=== PATIENT | female | born 1950 | race Caucasian/White ===

== ENCOUNTER 2019-10-15 12:26 | Inpatient (IN) | payer BC ==
[~2019-10-15] VITALS: Ht 160 cm; Wt 61.2 kg
--- NOTE | 2019-10-15 12:40 | NUR ---
hiro, from [facility], sent by PMD due to abnormal CXR PNA and for further evaluation, pt awake, alert, -sob, pt on monitor, pending md victoria
[2019-10-15] MEDS ORDERED: LEVOFLOXACIN 750 MG /D5W 150ML 150 ML IV ONE (13:00)
[2019-10-15] MEDS ORDERED: CEFEPIME 1 GM in IV D5W 50 ML IV ONE (13:00)
[2019-10-15] MEDS ORDERED: VANCOMYCIN 1 GM in IV D5W 250 ML IV ONE (13:00)
[2019-10-15 13:06] LABS: BASOPHILS # (AUTO) 0.1 /CMM (0.0-0.2); BASOPHILS % (AUTO) 0.7 % (0.0-2.0); EOSINOPHILS % (AUTO) 1.7 % (0.0-6.0); HEMATOCRIT 47 % (33-45); HEMOGLOBIN 15.2 g/dL (11.5-14.8); LYMPHOCYTES # (AUTO) 2.3 /CMM (0.8-4.8); LYMPHOCYTES % (AUTO) 16.9 % (20.0-44.0); MEAN CORPUSCULAR HGB CONC 32 g/dl (31.0-36.0); MEAN CORPUSCULAR VOLUME 91 fL (82-100); MONOCYTES # (AUTO) 1.2 /CMM (0.1-1.30); MONOCYTES % (AUTO) 8.6 % (2.0-12.0); NEUTROPHILS # (AUTO) 9.7 /CMM (1.8-8.9); NEUTROPHILS % (AUTO) 72.1 % (43.0-81.0); PLATELET COUNT (AUTO) 301 /CMM (150-450); RED BLOOD CELL COUNT(AUTO) 5.21 MIL/uL (4.0-5.2); WHITE BLOOD COUNT (AUTO) 13.5 K/uL (4.3-11.0)
[2019-10-15 13:13] LABS: CALCIUM, SERUM 9.3 mg/dL (8.5-10.1); CARBON DIOXIDE 37 mmol/L (21-32); CHLORIDE 103 mmol/L (98-107); CREATININE 0.5 mg/dL (0.6-1.3); GLUCOSE 100 mg/dL (74-106); POTASSIUM 4.4 mmol/L (3.5-5.1); SODIUM SERUM 143 mmol/L (136-145); UREA NITROGEN, BLOOD 8 mg/dL (7-18)
[2019-10-15] MEDS ORDERED: VANCOMYCIN 1 GM VIAL ONE (13:21)
--- NOTE | 2019-10-15 13:25 | NUR ---
MOVE SHEET SUBMITTED. CALLED FOR MS BED.
[2019-10-15] MEDS ORDERED: MEGE400O4 PO (13:32)
[2019-10-15] MEDS ORDERED: MIRT15TA PO (13:32)
[2019-10-15] MEDS ORDERED: TRAZ-257 PO (13:32)
[2019-10-15] MEDS ORDERED: CRAN450C PO (13:32)
[2019-10-15] MEDS ORDERED: LEVE750T4 PO (13:32)
[2019-10-15] MEDS ORDERED: ASCO500C16 PO (13:32)
[2019-10-15] MEDS ORDERED: CALC1TAB91 PO (13:32)
[2019-10-15] MEDS ORDERED: THIA100T70 PO (13:32)
[2019-10-15] MEDS ORDERED: BUSP5TAB3 PO (13:32)
[2019-10-15] MEDS ORDERED: ZINC1CAP3 PO (13:32)
[2019-10-15] MEDS ORDERED: ONDA4TAB11 PO (13:32)
[2019-10-15] MEDS ORDERED: FOLIC ACID PO (13:32)
[2019-10-15] MEDS ORDERED: OMEP40CA13 PO (13:32)
[2019-10-15] MEDS ORDERED: MULT1TAB82 PO (13:32)
--- NOTE | 2019-10-15 13:32 | NUR ---
pharmacy delivered vanco and levaquin iv, [facility]; returned vanco to pharmacy, jennifer mayer.
--- NOTE | 2019-10-15 14:02 | NUR ---
per dr. paul--respiratory cx order was part of order set, disregard order.
--- NOTE | 2019-10-15 14:26 | NUR ---
called for report, nurse with a patient will call back
--- NOTE | 2019-10-15 14:33 | NUR ---
REPORT GIVEN TO LYNNE ARGUELLO.
--- NOTE | 2019-10-15 14:49 | NUR ---
bedside report given to lawrence martinez for nichol; pt was transported to 3rd floor
--- NOTE | 2019-10-15 14:50 | NUR ---
RN MS NOTES RECEIVED PT VIA BED FROM [facility] STAFF FADY ARGUELLO, PT IS AWAKE, ALERT AND ORIENTED, DENIES PAIN, NOT IN DISTRESS, ASSISTED TO BED, MADE COMFORTABLE, ROOM SET UP ORIENTATION PROVIDED, VERBALIZED UNDERSTANDING, PT IS ALERT AND COOPERATIVE BUT WITH EPISODES OF ANXIETY, VITALS TAKEN, PT STATES THAT SHE DOES NOT HAVE ANY SKIN ISSUES, REFUSES SKIN CHECK AT THIS TIME, KEPT WARM AND COMFORTABLE, AWAITING ADMITTING ORDERS FROM DR. GARCIA.
[2019-10-15] MEDS ORDERED: LORAZEPAM 0.5 MG TABLET PO PRN (17:00)
[2019-10-15] MEDS ORDERED: MAGNESIUM HYDROXIDE 30 ML UDC PO PRN (17:00)
[2019-10-15] MEDS ORDERED: ACETAMINOPHEN 325 MG TABLET PO PRN (17:00)
[2019-10-15] MEDS ORDERED: ONDANSETRON HCL/PF 4 MG/2 ML VIAL IVP PRN (17:00)
[2019-10-15] MEDS ORDERED: Z GUARD REMEDY 2 OZ OINT TP PRN (17:00)
[2019-10-15] MEDS ORDERED: HYDROCODONE/APAP 5/325MG 1 EACH TABLET PO PRN (17:00)
[2019-10-15] MEDS: busPIRone 5 MG TABLET PO SCH (17:14)
--- NOTE | 2019-10-15 19:00 | NUR ---
RN MS NOTES PT AWAKE, ALERT AND ORIENTED, DENIES PAIN, NOT IN DISTRESS, SITTING IN THE WHEELCHAIR, WANTS TO GO TO MEET HER DAUGHTER AT THE LOBBY, EXPLAINED HOSPITAL RULES BUT STILL INSISTS, DR. GARCIA AWARE, ORDERS GIVEN, 1:1 SITTER ORDERED FOR SAFETY, PT COMPLIANT WITH MEDS, REFUSED BODY CHECK ON ADMISSION, STATED THAT SHE DOES NOT HAVE ANY SKIN PROBLEM, MONITORED PT CLOSELY, NEEDS ATTENDED.
--- NOTE | 2019-10-15 19:15 | NUR ---
MS RN NOTES: RECEIVED PATIENT Patient sitting up in wheelchair to move around, appears restless. Anxious to go hospital lobby, per patient she will meet her daughter at the lobby, reorient patient, will provided sitter. Fall precaution maintained.
[2019-10-15 20:00] VITALS: BP 139/78
[2019-10-15] MEDS: TRAZODONE 50 MG TABLET PO PRN (22:02)
[2019-10-15] MEDS: MIRTAZAPINE 15 MG TABLET PO SCH (22:02)
[2019-10-15] MEDS: LEVETIRACETAM (250 MG) 250 MG TABLET PO SCH (22:02)
--- NOTE | 2019-10-16 06:19 | NUR ---
MS RN NOTES: SHIFT REPORT Patient in bed, stable Oxygen saturation on room air. IV antibiotic as scheduled. Episode of Anxiety, denies pain, able to calm down after Ativan dose. Slept well with PRN Trazodone. Fall precaution maintained. Sitter at bedside.
[2019-10-16 07:05] LABS: BASOPHILS # (AUTO) 0.1 /CMM (0.0-0.2); BASOPHILS % (AUTO) 1.1 % (0.0-2.0); EOSINOPHILS % (AUTO) 3.7 % (0.0-6.0); HEMATOCRIT 44 % (33-45); HEMOGLOBIN 14.2 g/dL (11.5-14.8); LYMPHOCYTES # (AUTO) 1.9 /CMM (0.8-4.8); MEAN CORPUSCULAR HGB CONC 33 g/dl (31.0-36.0); MEAN CORPUSCULAR VOLUME 89 fL (82-100); MONOCYTES # (AUTO) 1.1 /CMM (0.1-1.30); MONOCYTES % (AUTO) 11.4 % (2.0-12.0); NEUTROPHILS # (AUTO) 6.2 /CMM (1.8-8.9); NEUTROPHILS % (AUTO) 63.8 % (43.0-81.0); PLATELET COUNT (AUTO) 276 /CMM (150-450); RED BLOOD CELL COUNT(AUTO) 4.88 MIL/uL (4.0-5.2); WHITE BLOOD COUNT (AUTO) 9.7 K/uL (4.3-11.0)
--- NOTE | 2019-10-16 07:30 | NUR ---
RN MS NOTES PT ASLEEP, RESPIRATION NORMAL AND NON LABORED, NO SIGN OF PAIN OR DISTRESS, KEPT STUDY ASSISTANT BED, SITTER AT BEDSIDE, SAFETY PRECAUTIONS OBSERVED.
[2019-10-16 07:58] LABS: CHOLESTEROL 173 mg/dL (<200); HDL CHOLESTEROL 55 mg/dL (40-60); LDL 111 mg/dL (0-99); THYROID STIMULATING HORMONE 1.404 uIU/mL (0.358-3.74); TRIGLYCERIDES 68 mg/dL (30-150)
[2019-10-16 08:23] LABS: CALCIUM, SERUM 8.4 mg/dL (8.5-10.1); CHLORIDE 105 mmol/L (98-107); CREATININE 0.5 mg/dL (0.6-1.3); GLUCOSE 84 mg/dL (74-106); MAGNESIUM 1.6 mg/dL (1.8-2.4); PHOSPHORUS 4.1 mg/dL (2.5-4.9); POTASSIUM 3.7 mmol/L (3.5-5.1); SODIUM SERUM 142 mmol/L (136-145)
[2019-10-16 08:31] LABS: CARBON DIOXIDE 29 mmol/L (21-32); UREA NITROGEN, BLOOD 6 mg/dL (7-18)
[2019-10-16] MEDS: busPIRone 5 MG TABLET PO SCH ×3 (09:00→16:42)
--- NOTE | 2019-10-16 09:00 | NUR ---
RN MS NOTES PT ASLEEP, EASY TO AROUSE, NO COMPLAINT OF PAIN, NOT IN DISTRESS, DOES NOT WANT TO EAT BREAKFAST OR TAKE HIS MEDS AT THIS TIME, WENT BACK TO SLEEP.
[2019-10-16] MEDS: CEFTRIAXONE 1 G in IV D5W 50 ML IV SCH (09:34)
[2019-10-16] MEDS: PANTOPRAZOLE 40 MG TABLET.DR PO SCH (13:38)
[2019-10-16] MEDS: LEVETIRACETAM (250 MG) 250 MG TABLET PO SCH ×2 (13:38→21:33)
[2019-10-16] MEDS: AZITHROMYCIN 250 MG TABLET PO SCH (13:38)
[2019-10-16] MEDS: CALCIUM CARB 250MG /VITAMIN D 1 UDTAB PO SCH (13:40)
[2019-10-16] MEDS: MEGESTROL ACETATE SUSP 400 MG/10 ML UDC PO SCH (13:40)
[2019-10-16] MEDS: FOLIC ACID 1 MG TABLET PO SCH (13:40)
[2019-10-16] MEDS: ZINC SULFATE 220 MG CAPSULE PO SCH (13:40)
[2019-10-16] MEDS: MULTIVITAMINS,THERAGRAN 1 UDTAB TABLET PO SCH (13:41)
[2019-10-16] MEDS: ASCORBIC ACID 500 MG TABLET PO SCH (13:41)
[2019-10-16] MEDS: THIAMINE HCL 100 MG TABLET PO SCH (13:41)
[2019-10-16] MEDS: Magnesium 1GM/D5W 100ML PREMIX 100 ML IV SCH ×2 (14:55→16:37)
--- NOTE | 2019-10-16 15:00 | NUR ---
RN MS NOTES PT IN BED, RESTING, NO BEHAVIOR PROBLEM NOTED AT THIS TIME, SITTER AT BEDSIDE, SAFETY PRECAUTIONS OBSERVED, SEEN BY DR. GARCIA, PLAN OF CARE DISCUSSED WITH PT. VERBALIZED UNDERSTANDING, KEPT CLEAN, DRY AND COMFORTABLE, FLUIDS ENCOURAGED, SNACKS PROVIDED.
[2019-10-16 16:00] VITALS: BP 92/54
--- NOTE | 2019-10-16 19:00 | NUR ---
RN MS NOTES PT IN BED, RESTING, NO COMPLAINT OF PAIN, NOT IN DISTRESS, SAFETY PRECAUTIONS OBSERVED, SITTER AT BEDSIDE, COMPLIANT WITH MEDS, NO BEHAVIOR PROBLEM NOTED AT THIS TIME, ALL NEEDS ATTENDED.
--- NOTE | 2019-10-16 19:30 | NUR ---
SINTER FEEDER: RECEIVED REPORT FROM LYNNE ARGUELLO. PT A/O X2 ON RA RESPIRATIONS EVEN AND UNLABORED. PT NOTED WITH INTERMITTENT WEAK NON PRODUCTIVE COUGH. SITTER AT BEDSIDE. PT HIGH RISK FOR FALL AND ELOPEMENT. IV ACCESS PATENT AND FLUSHING WELL, ON HL. SAFETY PRECAUTIONS FOR FALL INITIATED, CALL LIGHT IN REACH, WILL CONTINUE MONITORING PT.
[2019-10-16 19:45] VITALS: BP 83/65
[2019-10-16 20:24] VITALS: BP 96/52
[2019-10-16 21:33] VITALS: BP 89/51
--- NOTE | 2019-10-16 21:47 | NUR ---
RN NOTES: RELAYED TO HOSPITALIST MANGLE TENDER CLOTH REGARDING FLUCTUATING BP, PER MD RECEIVED TELEPHONE ORDER TO GIVE 5020ML NS BOLUS. ORDER READ BACK, VERIFIED AND CARRIED OUT. Addendum: 10/16/19 at 2148 by CHANDANA MADRIGAL RN CORRECTION OF ENTRY: 500 ML NS BOLUS
--- NOTE | 2019-10-16 21:48 | NUR ---
RN NOTES: RELAYED TO HOSPITALIST MARKETING SERVICES COORDINATOR REGARDING FLUCTUATING BP, PER MD RECEIVED TELEPHONE ORDER TO GIVE 500ML NS BOLUS. ORDER READ BACK, VERIFIED AND CARRIED OUT.
[2019-10-16] MEDS ORDERED: IV NS 0.9% 500 ML IV ONE (22:00)
[2019-10-16] MEDS: TRAZODONE 50 MG TABLET PO PRN (22:01)
[2019-10-16] MEDS: MIRTAZAPINE 15 MG TABLET PO SCH (22:01)
--- NOTE | 2019-10-16 22:01 | NUR ---
RN NOTES: PER DR PAIZ TO HOLD TRAZODONE FOR TONIGHT. ORDER READ BACK VERIFIED AND CARRIED OUT.
[2019-10-16 22:57] VITALS: BP 96/53
--- NOTE | 2019-10-16 22:58 | NUR ---
rn notes: vs taken and recorded. notified hospitalist of latest vs post bolus.
--- NOTE | 2019-10-16 23:04 | NUR ---
rn notes: hospitalist dr mcdaniels currently in the unit relayed about vs result, pt denies any head ache dizziness or light headedness, stated all she wanted to do is sleep, pt ate snack provided with 4juices and 2 crackers, pt consumed 100%. per md, no new orders received.
--- NOTE | 2019-10-17 06:17 | NUR ---
rn notes: pt refused for bed bath and linen change, pt stated she would like to sleep more
--- NOTE | 2019-10-17 06:37 | NUR ---
end of shift report: pt remains a/o x2, on ra, respirations even and unlabored. iv access remains patent and flushing well, on hl. pt s/p 500ml ns bolus for fluctuating bp. bp remains on 90's. md aware. pt denies any head ache, light headedness. po trazodone held by hospitalist. for dc planning today. sitter at bed side. safety precautions for fall remains engaged, call light in reach, will endorse to day rn for continuity of care.
--- NOTE | 2019-10-17 07:00 | NUR ---
patient resting in bed- no complaints of pain - safety precautions in place- received bedside sbar- piv infusing - will continue to monitor report and record.
[2019-10-17 07:16] LABS: CALCIUM, SERUM 8.3 mg/dL (8.5-10.1); CARBON DIOXIDE 31 mmol/L (21-32); CHLORIDE 106 mmol/L (98-107); CREATININE 0.5 mg/dL (0.6-1.3); GLUCOSE 90 mg/dL (74-106); MAGNESIUM 2.1 mg/dL (1.8-2.4); POTASSIUM 4.3 mmol/L (3.5-5.1); SODIUM SERUM 143 mmol/L (136-145); UREA NITROGEN, BLOOD 6 mg/dL (7-18)
[2019-10-17] MEDS: CALCIUM CARB 250MG /VITAMIN D 1 UDTAB PO SCH (08:39)
[2019-10-17] MEDS: FOLIC ACID 1 MG TABLET PO SCH (08:39)
[2019-10-17] MEDS: ZINC SULFATE 220 MG CAPSULE PO SCH (08:39)
[2019-10-17] MEDS: MULTIVITAMINS,THERAGRAN 1 UDTAB TABLET PO SCH (08:39)
[2019-10-17] MEDS: THIAMINE HCL 100 MG TABLET PO SCH (08:39)
[2019-10-17] MEDS: LEVETIRACETAM (250 MG) 250 MG TABLET PO SCH (08:39)
[2019-10-17] MEDS: MEGESTROL ACETATE SUSP 400 MG/10 ML UDC PO SCH (08:39)
[2019-10-17] MEDS: ASCORBIC ACID 500 MG TABLET PO SCH (08:39)
[2019-10-17] MEDS: busPIRone 5 MG TABLET PO SCH ×2 (09:03→12:01)
[2019-10-17] MEDS: PANTOPRAZOLE 40 MG TABLET.DR PO SCH (09:03)
[2019-10-17] MEDS: AZITHROMYCIN 250 MG TABLET PO SCH (09:03)
[2019-10-17] MEDS: CEFTRIAXONE 1 G in IV D5W 50 ML IV SCH (09:13)
--- NOTE | 2019-10-17 12:00 | NUR ---
PATIENT RESTING IN ROOM - NO COMPLAINTS OR CONCERNS- PREPARING FOR DISCHARGE - PATIENT IS AWARE OF DISCHARGE-AND AGREES- VITALS STABLE - NO COMPLAINTS OR CONCERNS- WILL CONTINUE TO MONITOR REPORT AND RECORD
--- NOTE | 2019-10-17 12:00 | NUR ---
PATIENT RESTING IN ROOM - NO COMPLAINTS OR CONCERNS- PREPARING FOR DISCHARGE - PVITALS STABLE - NO COMPLAINTS OR CONCERNS- WILL CONTINUE TO MONITOR REPORT AND RECORD
--- NOTE | 2019-10-17 12:56 | NUR ---
CALLED [facility] [phone]- EDUCATED ABOUT DISCHARGE- AND NEW RX- WANTS IT FAXED TO THE FACILITY-
--- NOTE | 2019-10-17 15:45 | NUR ---
report provided for facility -patients iv has been dc, instructions, as well as rx provided for patient - transport escorted off unit-
== END 2019-10-17 15:50 | DRG 194 ==
LOC: ER 12:43 → MED 14:52
PROVIDERS: ADMIT Nurse Practitioner Acute Care; ATTEND Nurse Practitioner Acute Care
DX: J15.9 Unspecified bacterial pneumonia (principal); J98.11 Atelectasis; I10 Essential (primary) hypertension; F41.9 Anxiety disorder, unspecified; F32.9 Major depressive disorder, single episode, unspecified; J44.9 Chronic obstructive pulmonary disease, unspecified; D72.829 Elevated white blood cell count, unspecified; G40.909 Epilepsy, unspecified, not intractable, without status epilepticus
CPT/HCPCS: 36415; 71045-TC; 80048-TC; 80061-TC; 83735-TC; 84100-TC; 84443-TC; 85025-TC; 87040-TC; 87081-TC; G0378; J0692; J0696; J1956; J3370; J3475; J7040; J7050; J7060